=== PATIENT | male | born 1980 | race Caucasian/White ===

== ENCOUNTER 2018-02-25 20:21 | Emergency (ER) | payer SELFPAY ==
[2018-02-25] MEDS ORDERED: Ketorolac 60 MG/2 ML SDV IM ONE (21:31)
[2018-02-25] MEDS ORDERED: diphenhydrAMINE 50 MG/ML SDV IM ONE (21:31)
[2018-02-25] MEDS ORDERED: Doxycycline 100 MG Cap PO ONE (22:42)
[2018-02-25] MEDS ORDERED: cefTRIAXone 1 GM, Lidocaine 1% 2.1 ML IM SCH ×2 (22:45)
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
== END 2018-02-25 23:20 | disposition home or self-care (01) ==
LOC: JD.ED 20:21
DX: L03.311 Cellulitis of abdominal wall (principal); L73.9 Follicular disorder, unspecified; F17.210 Nicotine dependence, cigarettes, uncomplicated; Z79.899 Other long term (current) drug therapy
CPT/HCPCS: 36415; 80053; 85025; 86140; 96372; 99283; A9270; J0696; J1200; J1885

== ENCOUNTER 2018-03-03 16:30 | Emergency (ER) | payer OTHER ==
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
== END 2018-03-03 17:37 | disposition home or self-care (01) ==
LOC: JD.ED 16:30
DX: B86 Scabies (principal); L23.5 Allergic contact dermatitis due to other chemical products
CPT/HCPCS: 99283